=== PATIENT | male | born 1995 | race Caucasian/White ===

== ENCOUNTER 2022-06-24 14:15 | Emergency (ER) | payer MEDICAID ==
[~2022-06-24] VITALS: Ht 180.3 cm; Wt 81.6 kg
[2022-06-24 14:25] VITALS: BP 142/78
[2022-06-24] MEDS ORDERED: NACL 0.9% 1,000 ML IV ONE (14:40)
[2022-06-24] MEDS ORDERED: KETOROLAC 30 MG/ML VIAL IVP ONE (14:40)
--- NOTE | 2022-06-24 14:40 | NUR ---
PT RECEIVED, CARE ASSUMED. PT PRESENTS SELF TO ER WITH C/O LEFT FLANK PAIN. PT ADMITS TO HX OF KIDNEY STONES. COLLECTED URINE SAMPLE, AWAITING TO BE SEEN BY
[2022-06-24 15:00] LABS: APPEARANCE,URINE CLEAR (CLEAR); BILIRUBIN,URINE NEGATIVE (NEGATIVE); BLOOD, URINE 3+ (NEGATIVE); COLOR,URINE YELLOW (YELLOW); LEUKOCYTE ESTERASE ,URINE NEGATIVE (NEGATIVE); NITRITE, URINE NEGATIVE (NEGATIVE); UGLUCOSE NEGATIVE (NEGATIVE)
[2022-06-24 15:01] LABS: BASOPHILS # (AUTO) 0.1 K/uL (0.00-0.22); BASOPHILS % (AUTO) 0.7 % (0.0-2.0); EOSINOPHILS # (AUTO) 0.2 K/uL (0-0.4); EOSINOPHILS % (AUTO) 3.2 % (0.0-4.0); HEMATOCRIT 40.9 % (36-52); HEMOGLOBIN 14.2 g/dL (12.0-18.0); LYMPHOCYTES # (AUTO) 1.5 K/uL (2.0-11.5); LYMPHOCYTES % (AUTO) 19.9 % (20.5-51.1); MEAN CORPUSCULAR HEMOGLOBIN 30 pg (27-31); MEAN CORPUSCULAR HGB CONC 35 g/dL (33-37); MEAN CORPUSCULAR VOLUME 86.7 fL (80-94); MONOCYTES # (AUTO) 0.6 K/uL (0.8-1.0); MONOCYTES % (AUTO) 7.7 % (1.7-9.3); NEUTROPHILS # (AUTO) 5.1 K/uL (1.8-7.7); NEUTROPHILS % (AUTO) 68.5 % (42.2-75.2); PLATELET COUNT (AUTO) 301 K/uL (140-450); RED BLOOD CELL COUNT(AUTO) 4.71 MIL/uL (4.20-6.10); RED CELL DISTRIBUTION WIDTH 13.3 % (11.6-13.7); WHITE BLOOD COUNT (AUTO) 7.4 K/uL (4.8-10.8)
[2022-06-24 15:20] LABS: ALBUMIN 4.5 g/dL (3.4-5.0); ANION GAP 11.8 (8-16); CARBON DIOXIDE 29.4 mmol/L (21-32); POTASSIUM 4.2 mmol/L (3.5-5.1); TOTAL BILIRUBIN 0.3 mg/dL (0.0-1.0)
[2022-06-24 15:23] LABS: RBC,URINE TOO NUMEROUS TO COUN /HPF (0-5); TRICHOMONAS,URINE None Seen /HPF (None Seen); YEAST,URINE None Seen /HPF (None Seen)
[2022-06-24] MEDS: HYDROcodone/APAP 5/325 MG 1 TAB TAB PO ONE ×2 (15:26→15:58)
[2022-06-24] MEDS ORDERED: ACET-8905 PO (16:32)
[2022-06-24] MEDS ORDERED: TAMS0.4C96 PO (16:32)
[2022-06-24] MEDS ORDERED: IBUP-2213 PO (16:32)
[2022-06-24 16:51] VITALS: BP 131/78
--- NOTE | 2022-06-24 16:53 | NUR ---
Patient discharged with v/s stable. Written and verbal after care instructions given and explained. Patient verbalized understanding. Ambulatory with steady gait. All questions addressed prior to discharge. Advised to follow up with PMD.
--- NOTE | 2022-06-26 09:41 | NUR ---
LATE ENTRY - CONFIRMED WITH RN NS INFUSION STARTED 06/24/22 AT 1446 COMPLETED AT 1546 SAME DAY
== END 2022-06-24 16:53 | disposition home or self-care (01) ==
LOC: MED 14:15
DX: R10.9 Unspecified abdominal pain (principal); R31.9 Hematuria, unspecified; R03.0 Elevated blood-pressure reading, without diagnosis of hypertension; Z79.899 Other long term (current) drug therapy; Z87.442 Personal history of urinary calculi
CPT/HCPCS: 36415; 76770; 80053; 81001; 83690; 85025; 87086; 96374; 99284; J1885; J7030; Q0092

== ENCOUNTER 2022-07-30 12:46 | Emergency (ER) | payer MEDICAID ==
[~2022-07-30] VITALS: Ht 180.3 cm; Wt 88.5 kg
[~2022-07-30 12:46] MED LIST: ACET-8905 PO; IBUP-2213 PO; TAMS0.4C96 PO
[2022-07-30 13:06] VITALS: BP 134/78
[2022-07-30] MEDS ORDERED: TAMS0.4C96 PO (13:14)
[2022-07-30] MEDS ORDERED: IBUP-2213 PO (13:14)
[2022-07-30] MEDS ORDERED: ACET-8905 PO (13:14)
--- NOTE | 2022-07-30 13:25 | NUR ---
27/M PRESENTS TO ED REQUESTING MEDICATION REFILL FOR NORCO, MOTRIN AND FLOMAX. PATIENT RECENTLY DX WITH KIDNEY STONES BUT STATES HE RAN OUT OF HIS MEDS AND PAIN HAS BEEN WORSENING.
[2022-07-30] MEDS ORDERED: KETOROLAC 30 MG/ML VIAL ONE (13:28)
[2022-07-30] MEDS ORDERED: KETOROLAC 30 MG/ML VIAL IM ONE (13:30)
--- NOTE | 2022-07-30 13:53 | NUR ---
Patient discharged with v/s stable. Written and verbal after care instructions ABOUT KIDNEY STONES given and explained. Patient alert, oriented and verbalized understanding of instructions. Ambulatory with steady gait. All questions addressed prior to discharge. ID band removed. Patient advised to follow up with PMD. Rx of NORCO 5-325, FLOMAX, MOTRIN given. Patient educated on indication of medication including possible reaction and side effects. Opportunity to ask questions provided and answered.
== END 2022-07-30 13:43 | disposition home or self-care (01) ==
LOC: MED 12:46
DX: N20.0 Calculus of kidney (principal); R31.9 Hematuria, unspecified; Z76.0 Encounter for issue of repeat prescription; Z79.899 Other long term (current) drug therapy; Z79.891 Long term (current) use of opiate analgesic; Z79.1 Long term (current) use of non-steroidal anti-inflammatories (NSAID)
CPT/HCPCS: 96372; 99283; J1885

== ENCOUNTER 2022-09-04 09:56 | Emergency (ER) | payer MEDICAID ==
[~2022-09-04] VITALS: Ht 180.3 cm; Wt 86.2 kg
[2022-09-04 10:09] VITALS: BP 120/73
--- NOTE | 2022-09-04 10:12 | NUR ---
PT AMBULATED TO ER BED 8
[2022-09-04] MEDS ORDERED: KETOROLAC 30 MG/ML VIAL IVP ONE (10:25)
--- NOTE | 2022-09-04 10:25 | NUR ---
27YO MALE PT C/O STABBING 10/10 L FLANK PAIN X3DAYS. REPORTS NAUSEA, HEMATURIA AND S/S TO PREVIOUS KIDNEY STONES. NON TENDER. DENIES DYSURIA, V/D, FEVER, CHILLS, CHEST PAIN,SOB OR RELIEF AFTER NAPROXEN. PT AAOX4, HOB POSITIONED PER COMFORT. HX: KIDNEY STONES NKA
--- NOTE | 2022-09-04 10:28 | NUR ---
MD LINDSEY AT BEDSIDE FOR EVALUATION
--- NOTE | 2022-09-04 10:32 | NUR ---
blood drawn and collected, walked to lab
[2022-09-04 11:04] LABS: APPEARANCE,URINE CLEAR (CLEAR); BILIRUBIN,URINE NEGATIVE (NEGATIVE); BLOOD, URINE 3+ (NEGATIVE); COLOR,URINE YELLOW (YELLOW); LEUKOCYTE ESTERASE ,URINE TRACE (NEGATIVE); NITRITE, URINE POSITIVE (NEGATIVE); UGLUCOSE NEGATIVE (NEGATIVE)
[2022-09-04 11:07] LABS: BASOPHILS # (AUTO) 0.1 K/uL (0.00-0.22); BASOPHILS % (AUTO) 0.8 % (0.0-2.0); EOSINOPHILS # (AUTO) 0.4 K/uL (0-0.4); EOSINOPHILS % (AUTO) 6.3 % (0.0-4.0); HEMATOCRIT 42.3 % (36-52); HEMOGLOBIN 14.1 g/dL (12.0-18.0); LYMPHOCYTES # (AUTO) 1.1 K/uL (2.0-11.5); LYMPHOCYTES % (AUTO) 18.4 % (20.5-51.1); MEAN CORPUSCULAR HEMOGLOBIN 29 pg (27-31); MEAN CORPUSCULAR HGB CONC 33 g/dL (33-37); MEAN CORPUSCULAR VOLUME 87.7 fL (80-94); MONOCYTES # (AUTO) 0.5 K/uL (0.8-1.0); MONOCYTES % (AUTO) 7.9 % (1.7-9.3); NEUTROPHILS # (AUTO) 4.1 K/uL (1.8-7.7); NEUTROPHILS % (AUTO) 66.6 % (42.2-75.2); PLATELET COUNT (AUTO) 252 K/uL (140-450); RED BLOOD CELL COUNT(AUTO) 4.82 MIL/uL (4.20-6.10); RED CELL DISTRIBUTION WIDTH 13.4 % (11.6-13.7); WHITE BLOOD COUNT (AUTO) 6.2 K/uL (4.8-10.8)
--- NOTE | 2022-09-04 11:08 | NUR ---
pt w/ no pain relief. MADE AWARE
[2022-09-04] MEDS ORDERED: ONDANSETRON 4 MG/2 ML VIAL IVP ONE (11:20)
[2022-09-04] MEDS ORDERED: MORPHINE SULFATE 2 MG/ML SYR IVP ONE (11:20)
[2022-09-04 11:27] LABS: ALBUMIN 4.6 g/dL (3.4-5.0); ANION GAP 11.3 (8-16); CARBON DIOXIDE 30.9 mmol/L (21-32); POTASSIUM 4.2 mmol/L (3.5-5.1); TOTAL BILIRUBIN 0.7 mg/dL (0.0-1.0)
[2022-09-04 11:41] LABS: RBC,URINE 20-50 /HPF (0-5); WBC,URINE 0-5 /HPF (0-5)
[2022-09-04] MEDS ORDERED: ACET-8905 PO (13:07)
[2022-09-04] MEDS ORDERED: NAPR-1704 PO (13:07)
--- NOTE | 2022-09-04 13:22 | NUR ---
IV removed, catheter intact and site benign. Applied folded 4x4 gauze and tape to stop bleeding.
[2022-09-04 13:24] VITALS: BP 112/63
--- NOTE | 2022-09-04 13:24 | NUR ---
Patient discharged with v/s stable. Written and verbal after care instructions FOR RENAL COLIC given and explained. Patient alert, oriented and verbalized understanding of instructions. Ambulatory with steady gait. All questions addressed prior to discharge. ID band removed. Patient advised to follow up with PMD. Rx of NAPROXEN AND HYDROCODONE given. Opportunity to ask questions provided and answered.
--- NOTE | 2022-09-04 13:26 | NUR ---
The patient's care was reviewed and supervised by Miladis Mi RN.
== END 2022-09-04 13:24 | disposition home or self-care (01) ==
LOC: MED 09:56
DX: N23 Unspecified renal colic (principal); Z79.899 Other long term (current) drug therapy; Z79.1 Long term (current) use of non-steroidal anti-inflammatories (NSAID); Z79.891 Long term (current) use of opiate analgesic
CPT/HCPCS: 36415; 80053; 81001; 85025; 87086; 96374; 96375; 99285; J1885; J2270; J2405

== ENCOUNTER 2023-04-10 07:00 | Emergency (ER) | payer MEDICAID, OTHER ==
[~2023-04-10] VITALS: Ht 180.3 cm; Wt 94.3 kg
[~2023-04-10 07:00] MED LIST changes: +NAPR-1704 PO
[2023-04-10 07:34] VITALS: BP 131/89; PULSE 82; RESP 20; TEMP 97.8; O2SAT 97
[2023-04-10] MEDS ORDERED: KETOROLAC 30 MG/ML VIAL IVP ONE (07:50)
[2023-04-10 08:57] LABS: BASOPHILS # (AUTO) 0.1 K/uL (0.00-0.22); BASOPHILS % (AUTO) 0.7 % (0.0-2.0); EOSINOPHILS # (AUTO) 0.6 K/uL (0-0.4); EOSINOPHILS % (AUTO) 7.7 % (0.0-4.0); HEMATOCRIT 38.2 % (36-52); HEMOGLOBIN 12.6 g/dL (12.0-18.0); LYMPHOCYTES # (AUTO) 1.4 K/uL (2.0-11.5); LYMPHOCYTES % (AUTO) 17.3 % (20.5-51.1); MEAN CORPUSCULAR HEMOGLOBIN 28 pg (27-31); MEAN CORPUSCULAR HGB CONC 33 g/dL (33-37); MEAN CORPUSCULAR VOLUME 84.1 fL (80-94); MONOCYTES # (AUTO) 0.7 K/uL (0.8-1.0); MONOCYTES % (AUTO) 9.3 % (1.7-9.3); NEUTROPHILS # (AUTO) 5.2 K/uL (1.8-7.7); PLATELET COUNT (AUTO) 277 K/uL (140-450); RED BLOOD CELL COUNT(AUTO) 4.54 MIL/uL (4.20-6.10); RED CELL DISTRIBUTION WIDTH 13.3 % (11.6-13.7); WHITE BLOOD COUNT (AUTO) 8.1 K/uL (4.8-10.8)
[2023-04-10 09:01] LABS: APPEARANCE,URINE CLEAR (CLEAR); BILIRUBIN,URINE NEGATIVE (NEGATIVE); BLOOD, URINE 3+ (NEGATIVE); COLOR,URINE YELLOW (YELLOW); LEUKOCYTE ESTERASE ,URINE NEGATIVE (NEGATIVE); NITRITE, URINE POSITIVE (NEGATIVE); PROTEIN,URINE TRACE (NEGATIVE); UGLUCOSE NEGATIVE (NEGATIVE); UROBILINOGEN,URINE 0.2 EU/dL (0.2 - 1)
[2023-04-10 09:10] LABS: ALBUMIN 3.7 g/dL (3.4-5.0); ANION GAP 13.2 (8-16); CALCIUM 8.5 mg/dL (8.5-10.1); CARBON DIOXIDE 26.8 mmol/L (21-32); TOTAL BILIRUBIN 0.3 mg/dL (0.0-1.0); TOTAL PROTEIN, SERUM 7.5 g/dL (6.4-8.2)
[2023-04-10 09:18] LABS: RBC,URINE 11-20 (MOD) /HPF (0-5)
[2023-04-10 09:19] LABS: BACTERIA,URINE 10-30 (MOD) /HPF (None Seen); MUCUS,URINE None Seen /LPF (None Seen); SQUAMOUS EPITHELIAL CELL,UR 4-10 (MOD) /LPF (0-3 (FEW)); TRICHOMONAS,URINE None Seen /HPF (None Seen); WBC,URINE 0-5 /HPF (0-5); WHITE BLOOD CELL CASTS,URINE None Seen /LPF (None Seen); YEAST,URINE None Seen /HPF (None Seen)
[2023-04-10] MEDS ORDERED: NAPR-54 PO (09:42)
[2023-04-10] MEDS ORDERED: CEPH-588 PO (09:42)
[2023-04-10] MEDS ORDERED: TRAM-748 PO (09:42)
[2023-04-10 09:50] VITALS: BP 132/82; PULSE 85; RESP 14; TEMP 98.4; O2SAT 98
== END 2023-04-10 09:50 | disposition home or self-care (01) ==
LOC: MED 07:00
DX: N23 Unspecified renal colic (principal); Z98.890 Other specified postprocedural states; Z79.899 Other long term (current) drug therapy; Z79.1 Long term (current) use of non-steroidal anti-inflammatories (NSAID)
CPT/HCPCS: 36415; 80053; 81001; 85025; 96374; 99283; J1885

== ENCOUNTER 2023-11-17 13:04 | Emergency (ER) | payer MEDICAID, OTHER ==
[~2023-11-17] VITALS: Ht 180.3 cm; Wt 92.1 kg
[~2023-11-17 13:04] MED LIST changes: +CEPH-588 PO; +NAPR-337 PO; +TRAM-748 PO
[2023-11-17 13:07] VITALS: BP 114/73; PULSE 79; RESP 16; TEMP 97.2; O2SAT 99
[2023-11-17] MEDS ORDERED: KETO10TA2 PO (14:18)
== END 2023-11-17 14:36 | disposition home or self-care (01) ==
LOC: MED 13:04
DX: F41.0 Panic disorder [episodic paroxysmal anxiety] (principal); T50.995A Adverse effect of other drugs, medicaments and biological substances, initial encounter; Z79.899 Other long term (current) drug therapy; Y92.89 Other specified places as the place of occurrence of the external cause
CPT/HCPCS: 99283